=== PATIENT | female | born 1940 | race Native Hawaiian/Other Pacific Islander ===

== ENCOUNTER 2017-01-26 09:32 | Outpatient (CLI) | payer OTHER, BC ==
[~2017-01-26] VITALS: Ht 165.1 cm; Wt 63.5 kg
[2017-01-26 09:48] VITALS: BP 131/67; TEMP 97.9
== END 2017-01-26 10:30 | disposition home or self-care (01) ==
LOC: INF 09:32
DX: M81.0 Age-related osteoporosis without current pathological fracture (principal)
CPT/HCPCS: 36415; 82310; 96372; J0897

== ENCOUNTER 2017-09-15 09:40 | Outpatient (CLI) | payer OTHER, BC ==
[~2017-09-15] VITALS: Ht 165.1 cm; Wt 63.5 kg
[2017-09-15 11:30] VITALS: BP 142/52; TEMP 97.8
== END 2017-09-15 11:30 | disposition home or self-care (01) ==
LOC: INF 09:40
DX: M81.0 Age-related osteoporosis without current pathological fracture (principal)
CPT/HCPCS: 36415; 82310; 96372; J0897

== ENCOUNTER 2019-06-29 10:22 | Outpatient (CLI) | payer OTHER, BC | END 2019-06-29 23:42 | disposition home or self-care (01) | LOC: LABW 10:22 | DX: L08.89 Other specified local infections of the skin and subcutaneous tissue (principal) | CPT/HCPCS: 36415; 85651; 87040 ==

== ENCOUNTER 2020-09-24 13:19 | Outpatient (CLI) | payer OTHER, BC | END 2020-09-24 22:01 | disposition home or self-care (01) | LOC: MRI 13:19 | PROVIDERS: ATTEND Internal Medicine Cardiovascular Disease | DX: R09.89 Other specified symptoms and signs involving the circulatory and respiratory systems (principal) ==

== ENCOUNTER 2021-09-01 19:22 | Emergency (ER) | payer OTHER, BC ==
[~2021-09-01] VITALS: Ht 165.1 cm; Wt 59.0 kg
[2021-09-01 20:01] LABS: PLATELET COUNT 142 K/uL (152-353)
[2021-09-01 20:19] LABS: POTASSIUM 4.1 mmol/L (3.6-5.2)
[2021-09-01 21:50] VITALS: BP 159/57; TEMP 97.8
== END 2021-09-01 21:58 | disposition home or self-care (01) ==
LOC: ED 19:22
PROVIDERS: Emergency Medicine Emergency Medical Services
DX: N39.0 Urinary tract infection, site not specified (principal); R11.2 Nausea with vomiting, unspecified
CPT/HCPCS: 36415; 80053; 81000; 83690; 84484; 85027; 87086; 87088; 93005; 96365; 96375; 99284; J0696; J3490